=== PATIENT | male | born 1955 | race Caucasian/White ===

== ENCOUNTER 2016-08-24 08:30 | Day surgery (SDC) | payer BC ==
[~2016-08-24 08:30] MED LIST: Lactated Ringers 1,000 ML IV SCH
[2016-08-24] MEDS ORDERED: Propofol 200 MG/20 ML SDV IV ONE (10:30)
--- NOTE | 2016-08-24 10:45 | PCM.OPNOTE ---
- General Post-Op/Procedure Note Date of Surgery/Procedure: 08/24/16 Operative Procedure(s): c scope with bx Findings: rectal polyps Pre Op Diagnosis: screening Post-Op Diagnosis: rectal polyps Anesthesia Technique: MAC Primary Surgeon: Francisco Javier Mi Anesthesia Provider: Jordi La Pathology: rectal polyps Complications: None Condition: Good Free Text/Narrative:: see dictation
[2016-08-24 12:06] VITALS: BP 130/79
--- NOTE | 2016-08-24 18:34 | OR ---
DATE OF OPERATION: 08/24/2016 SURGEON: Francisco Javier Mi MD PROCEDURE PERFORMED: Colonoscopy, cold forceps biopsy. PREOPERATIVE DIAGNOSIS: Need for screening C-scope. POSTOPERATIVE DIAGNOSIS: Rectal polyps. INDICATIONS FOR PROCEDURE: Mr. Bose presents for followup colonoscopy. He is at the 11-year point and due for followup exam. He was offered and accepted same. DESCRIPTION OF OPERATION: After an excellent IV sedation was administered, digital rectal exam was performed. No marked abnormality was noted. The flexible colonoscope was inserted and advanced without difficulty to the cecum. The prep was excellent. The following findings were noted. Ascending colon, unremarkable. Transverse colon, unremarkable. Descending colon, unremarkable. Sigmoid, unremarkable. Rectum, just above the anal verge, there were several hyperplastic-appearing polyps, biopsies were taken, and these were obliterated. The colon was deflated, and the scope was removed. The patient tolerated the procedure well and was taken to recovery room in good condition. /[id number] /MANISH
== END 2016-08-24 11:43 | disposition home or self-care (01) ==
LOC: FB.SDS 08:30
PROVIDERS: ATTEND Surgery
DX: Z12.11 Encounter for screening for malignant neoplasm of colon (principal); K62.1 Rectal polyp; E78.5 Hyperlipidemia, unspecified; E78.00 Pure hypercholesterolemia, unspecified; Z79.899 Other long term (current) drug therapy; Z79.82 Long term (current) use of aspirin; Z91.011 Allergy to milk products; Z91.02 Food additives allergy status
CPT/HCPCS: 45380; 88305; J2704; J7120